=== PATIENT | female | born 1960 | race Two or more races ===

== ENCOUNTER 2018-06-02 09:57 | Outpatient (CLI) | payer BC | END 2018-06-02 23:59 | disposition home or self-care (01) | LOC: RAD 09:57 | PROVIDERS: ATTEND Family Medicine | DX: M17.0 Bilateral primary osteoarthritis of knee (principal); M25.761 Osteophyte, right knee; M25.762 Osteophyte, left knee | CPT/HCPCS: 73562 ==

== ENCOUNTER 2018-08-11 12:59 | Outpatient (CLI) | payer BC | END 2018-08-11 23:59 | disposition home or self-care (01) | LOC: MRI 12:59 | PROVIDERS: ATTEND Family Medicine | DX: S83.241A Other tear of medial meniscus, current injury, right knee, initial encounter (principal); M22.42 Chondromalacia patellae, left knee; M25.462 Effusion, left knee; M25.461 Effusion, right knee; M22.41 Chondromalacia patellae, right knee; M71.21 Synovial cyst of popliteal space [Baker], right knee; X58.XXXA Exposure to other specified factors, initial encounter; Y93.89 Activity, other specified; Y92.89 Other specified places as the place of occurrence of the external cause; Y99.8 Other external cause status | CPT/HCPCS: 73721-TC ==

== ENCOUNTER 2018-11-11 22:57 | Emergency (ER) | payer BC ==
[~2018-11-11] VITALS: Ht 162.6 cm; Wt 86.2 kg
[2018-11-11 23:04] VITALS: BP 145/84
== END 2018-11-11 23:56 | disposition home or self-care (01) ==
LOC: ER 22:57
DX: H10.89 Other conjunctivitis (principal); B99.8 Other infectious disease

== ENCOUNTER 2019-06-03 09:12 | Outpatient (CLI) | payer BC ==
[2019-06-03 10:22] LABS: BASOPHILS % (AUTO) 0.7 % (0.0-2.0); EOSINOPHILS % (AUTO) 2.1 % (0.0-6.0); HEMATOCRIT 42 % (33-45); LYMPHOCYTES # (AUTO) 3.1 /CMM (0.8-4.8); LYMPHOCYTES % (AUTO) 49.1 % (20.0-44.0); MEAN CORPUSCULAR HGB CONC 33 g/dl (31.0-36.0); MEAN CORPUSCULAR VOLUME 88 fL (82-100); MONOCYTES # (AUTO) 0.6 /CMM (0.1-1.30); MONOCYTES % (AUTO) 9.6 % (2.0-12.0); NEUTROPHILS # (AUTO) 2.4 /CMM (1.8-8.9); NEUTROPHILS % (AUTO) 38.5 % (43.0-81.0); PLATELET COUNT (AUTO) 190 /CMM (150-450); RED BLOOD CELL COUNT(AUTO) 4.84 MIL/uL (4.0-5.2); WHITE BLOOD COUNT (AUTO) 6.3 K/uL (4.3-11.0)
[2019-06-03 10:24] LABS: APPEARANCE,URINE SL CLOUDY (CLEAR); BILIRUBIN,URINE NEGATIVE (NEGATIVE); BLOOD, URINE TRACE-INTA Ery/uL (NEGATIVE); COLOR,URINE DARK YELLO (YELLOW); KETONES,URINE NEGATIVE (NEGATIVE); LEUKOCYTE ESTERASE ,URINE NEGATIVE (NEGATIVE); NITRITE, URINE POSITIVE (NEGATIVE); PH,URINE 6.5 (5.0-8.0); PROTEIN,URINE NEGATIVE (NEGATIVE); UGLUCOSE NEGATIVE (NEGATIVE); UROBILINOGEN,URINE 0.2 EU/dL (0.2)
[2019-06-03 10:30] LABS: ALBUMIN 4.4 g/dL (3.4-5.0); BILIRUBIN,TOTAL 0.6 mg/dL (0.2-1.0); CALCIUM, SERUM 9.3 mg/dL (8.5-10.1); POTASSIUM 3.5 mmol/L (3.5-5.1)
[2019-06-03 11:12] LABS: BACTERIA,URINE Few /HPF (None Seen); RBC,URINE 0-2 /HPF (0-2)
== END 2019-06-03 23:59 | disposition home or self-care (01) ==
LOC: LAB 09:12
PROVIDERS: ATTEND Family Medicine
DX: R31.0 Gross hematuria (principal)
CPT/HCPCS: 36415; 80053-TC; 81000-TC; 85025-TC; 87086-TC

== ENCOUNTER 2019-06-04 08:53 | Outpatient (CLI) | payer BC ==
[2019-06-04] MEDS ORDERED: IV NS 0.9% 250 ML IV ONE (09:05)
[2019-06-04] MEDS ORDERED: IOHEXOL-300 100 ML VIAL IV ONE (09:05)
[2019-06-04] MEDS ORDERED: CT SWABBABLE VALVE TRANS SET 1 EA INFUS.SET MC ONE (09:05)
== END 2019-06-04 23:59 | disposition home or self-care (01) ==
LOC: CT 08:53
PROVIDERS: ATTEND Family Medicine
DX: R31.0 Gross hematuria (principal)
CPT/HCPCS: 74178; J7050; Q9967

== ENCOUNTER 2019-07-13 09:44 | Emergency (ER) | payer BC, OTHER ==
[~2019-07-13] VITALS: Ht 162.6 cm; Wt 88.5 kg
[2019-07-13 09:46] VITALS: BP 140/80
--- NOTE | 2019-07-13 10:08 | NUR ---
COVID SWAB SENT TO LAB.
--- NOTE | 2019-07-14 03:18 | NUR ---
LAB CALLED REGARDING COVID NEGATIVE RESULT.
== END 2019-07-13 10:16 | disposition home or self-care (01) ==
LOC: ER 09:44
DX: Z03.818 Encounter for observation for suspected exposure to other biological agents ruled out (principal)
CPT/HCPCS: 99283; U0003

== ENCOUNTER 2019-07-19 13:31 | Emergency (ER) | payer BC, OTHER ==
[~2019-07-19] VITALS: Ht 162.6 cm; Wt 81.6 kg
[2019-07-19 13:41] VITALS: BP 162/87
--- NOTE | 2019-07-19 14:09 | NUR ---
Note undone in EDM - 07/19/19 at 1412 by LUIS FERNANDO BIBRA FROM HOME TO ER BED 6. AAOX4. NOT IN RESP DISTRESS, BREATHING EVEN AND UNLABORED. BROUGHT IN ON JANNETH. C/O PAIN ON THE BACK OF THE HEAD S/P GLF. PER PT, HE FELL FROM STANDING X 3 AND HIT THE BACK OF THE HEAD. NOTED SKING TEAR ON L ELBOW AND R HAND. AT [facility] FOR EVAL. AWAITING ORDERS
--- NOTE | 2019-07-19 14:27 | NUR ---
Patient discharged to home in stable condition. Written and verbal after care instructions given. Patient verbalizes understanding of instruction. Pt ambulatory with a steady gait
== END 2019-07-19 14:29 | disposition home or self-care (01) ==
LOC: ER 13:41
DX: J06.9 Acute upper respiratory infection, unspecified (principal); Z98.890 Other specified postprocedural states

== ENCOUNTER 2019-07-21 09:35 | Emergency (ER) | payer BC, OTHER ==
[~2019-07-21] VITALS: Ht 162.6 cm; Wt 81.6 kg
[2019-07-21 09:43] VITALS: BP 136/84
--- NOTE | 2019-07-21 10:35 | NUR ---
covid swab sent to lab.
--- NOTE | 2019-07-22 06:48 | NUR ---
REC'D COVID RESULTS BY MAYELIN FROM MD S[facility]OR AWARE
== END 2019-07-21 10:36 | disposition home or self-care (01) ==
LOC: ER 09:44
DX: U07.1 COVID-19 (principal); R51 Headache; J06.9 Acute upper respiratory infection, unspecified
CPT/HCPCS: 99283; C9803; U0003

== ENCOUNTER 2019-08-05 11:05 | Emergency (ER) | payer OTHER ==
[~2019-08-05] VITALS: Ht 162.6 cm; Wt 80.7 kg
[2019-08-05 11:17] VITALS: BP 161/85
--- NOTE | 2019-08-05 11:39 | NUR ---
covid 19 specimen collected and sent to lab
== END 2019-08-05 11:40 | disposition home or self-care (01) ==
LOC: ER 11:07
DX: U07.1 COVID-19 (principal); J12.89 Other viral pneumonia
CPT/HCPCS: 99283; C9803; U0003

== ENCOUNTER 2019-09-20 09:10 | Outpatient (CLI) | payer BC ==
[2019-09-20 10:50] LABS: BASOPHILS % (AUTO) 0.9 % (0.0-2.0); HEMATOCRIT 42 % (33-45); HEMOGLOBIN 13.8 g/dL (11.5-14.8); LYMPHOCYTES # (AUTO) 2.3 /CMM (0.8-4.8); LYMPHOCYTES % (AUTO) 53.1 % (20.0-44.0); MEAN CORPUSCULAR HGB CONC 33 g/dl (31.0-36.0); MEAN CORPUSCULAR VOLUME 89 fL (82-100); MONOCYTES # (AUTO) 0.4 /CMM (0.1-1.30); MONOCYTES % (AUTO) 8.3 % (2.0-12.0); NEUTROPHILS # (AUTO) 1.5 /CMM (1.8-8.9); NEUTROPHILS % (AUTO) 35.7 % (43.0-81.0); PLATELET COUNT (AUTO) 171 /CMM (150-450); RED BLOOD CELL COUNT(AUTO) 4.76 MIL/uL (4.0-5.2); WHITE BLOOD COUNT (AUTO) 4.3 K/uL (4.3-11.0)
[2019-09-20 10:53] LABS: BILIRUBIN,TOTAL 0.6 mg/dL (0.2-1.0); CALCIUM, SERUM 9.1 mg/dL (8.5-10.1); CREATININE 0.9 mg/dL (0.6-1.3); TOTAL PROTEIN, SERUM 7.4 g/dL (6.4-8.2)
[2019-09-20 13:48] LABS: APPEARANCE,URINE CLEAR (CLEAR); BILIRUBIN,URINE NEGATIVE (NEGATIVE); BLOOD, URINE TRACE-INTA Ery/uL (NEGATIVE); COLOR,URINE YELLOW (YELLOW); KETONES,URINE NEGATIVE (NEGATIVE); LEUKOCYTE ESTERASE ,URINE TRACE (NEGATIVE); NITRITE, URINE NEGATIVE (NEGATIVE); PH,URINE 6.5 (5.0-8.0); PROTEIN,URINE NEGATIVE (NEGATIVE); UGLUCOSE NEGATIVE (NEGATIVE); UROBILINOGEN,URINE 0.2 EU/dL (0.2)
[2019-09-20 14:41] LABS: BACTERIA,URINE Few /HPF (None Seen); RED BLOOD CELL CASTS,URINE Few /LPF (None Seen); SQUAMOUS EPITHELIAL CELL,UR Few /HPF (None Seen)
== END 2019-09-20 23:59 | disposition home or self-care (01) ==
LOC: US 09:10
PROVIDERS: ATTEND Family Medicine
DX: R16.0 Hepatomegaly, not elsewhere classified (principal)
CPT/HCPCS: 36415; 76700-TC; 80053-TC; 81000-TC; 82150-TC; 83690-TC; 85025-TC

== ENCOUNTER 2019-11-19 07:54 | Outpatient (CLI) | payer BC ==
[2019-11-19 09:13] LABS: BASOPHILS % (AUTO) 0.6 % (0.0-2.0); HEMATOCRIT 39 % (33-45); HEMOGLOBIN 12.8 g/dL (11.5-14.8); LYMPHOCYTES # (AUTO) 1.9 /CMM (0.8-4.8); LYMPHOCYTES % (AUTO) 42.5 % (20.0-44.0); MEAN CORPUSCULAR HGB CONC 33 g/dl (31.0-36.0); MEAN CORPUSCULAR VOLUME 90 fL (82-100); MONOCYTES # (AUTO) 0.4 /CMM (0.1-1.30); MONOCYTES % (AUTO) 8.6 % (2.0-12.0); NEUTROPHILS # (AUTO) 2.1 /CMM (1.8-8.9); NEUTROPHILS % (AUTO) 46.3 % (43.0-81.0); PLATELET COUNT (AUTO) 153 /CMM (150-450); RED BLOOD CELL COUNT(AUTO) 4.35 MIL/uL (4.0-5.2); WHITE BLOOD COUNT (AUTO) 4.4 K/uL (4.3-11.0)
[2019-11-19 09:17] LABS: APPEARANCE,URINE CLEAR (CLEAR); BILIRUBIN,URINE NEGATIVE (NEGATIVE); BLOOD, URINE NEGATIVE Ery/uL (NEGATIVE); COLOR,URINE YELLOW (YELLOW); KETONES,URINE NEGATIVE (NEGATIVE); LEUKOCYTE ESTERASE ,URINE NEGATIVE (NEGATIVE); NITRITE, URINE NEGATIVE (NEGATIVE); PH,URINE 6.5 (5.0-8.0); PROTEIN,URINE NEGATIVE (NEGATIVE); UGLUCOSE NEGATIVE (NEGATIVE); UROBILINOGEN,URINE 0.2 EU/dL (0.2)
[2019-11-19 10:09] LABS: ALBUMIN 3.9 g/dL (3.4-5.0); BILIRUBIN,TOTAL 0.6 mg/dL (0.2-1.0); CALCIUM, SERUM 8.8 mg/dL (8.5-10.1); CREATININE 0.9 mg/dL (0.6-1.3); POTASSIUM 3.5 mmol/L (3.5-5.1); TOTAL PROTEIN, SERUM 7.2 g/dL (6.4-8.2)
[2019-11-19 10:15] LABS: THYROID STIMULATING HORMONE 5.826 uIU/mL (0.358-3.74)
== END 2019-11-19 23:59 | disposition home or self-care (01) ==
LOC: LAB 07:54
PROVIDERS: ATTEND Family Medicine
DX: Z00.01 Encounter for general adult medical examination with abnormal findings (principal)
CPT/HCPCS: 36415; 80053-TC; 80061-TC; 81000-TC; 84439-TC; 84443-TC; 85025-TC

== ENCOUNTER 2020-01-05 07:37 | Outpatient (CLI) | payer BC | END 2020-01-05 23:59 | disposition home or self-care (01) | LOC: RAD 07:37 | PROVIDERS: ATTEND Family Medicine | DX: M17.0 Bilateral primary osteoarthritis of knee (principal) | CPT/HCPCS: 73562 ==

== ENCOUNTER 2020-06-15 08:51 | Outpatient (CLI) | payer BC ==
[2020-06-15 09:54] LABS: BASOPHILS % (AUTO) 0.1 % (0.0-2.0); HEMATOCRIT 39 % (33-45); HEMOGLOBIN 13.1 g/dL (11.5-14.8); LYMPHOCYTES # (AUTO) 1.3 /CMM (0.8-4.8); MEAN CORPUSCULAR HGB CONC 33 g/dl (31.0-36.0); MEAN CORPUSCULAR VOLUME 90 fL (82-100); MONOCYTES # (AUTO) 0.3 /CMM (0.1-1.30); MONOCYTES % (AUTO) 3.8 % (2.0-12.0); NEUTROPHILS # (AUTO) 6.4 /CMM (1.8-8.9); NEUTROPHILS % (AUTO) 80.1 % (43.0-81.0); PLATELET COUNT (AUTO) 185 /CMM (150-450)
[2020-06-15 10:08] LABS: ALBUMIN 4.2 g/dL (3.4-5.0); BILIRUBIN,TOTAL 0.5 mg/dL (0.2-1.0); CALCIUM, SERUM 9.2 mg/dL (8.5-10.1); CREATININE 0.7 mg/dL (0.6-1.3); POTASSIUM 4.2 mmol/L (3.5-5.1); TOTAL PROTEIN, SERUM 7.7 g/dL (6.4-8.2)
[2020-06-15 10:24] LABS: URIC ACID 2.9 mg/dL (2.6-7.2)
== END 2020-06-15 23:59 | disposition home or self-care (01) ==
LOC: LAB 08:51
PROVIDERS: ATTEND Family Medicine
DX: M25.562 Pain in left knee (principal)
CPT/HCPCS: 36415; 80053-TC; 84550-TC; 85025-TC

== ENCOUNTER 2020-06-20 08:03 | Outpatient (CLI) | payer BC | END 2020-06-20 23:59 | disposition home or self-care (01) | LOC: RAD 08:03 | PROVIDERS: ATTEND Family Medicine | DX: M17.12 Unilateral primary osteoarthritis, left knee (principal); M25.462 Effusion, left knee; M25.762 Osteophyte, left knee; M79.89 Other specified soft tissue disorders | CPT/HCPCS: 73562 ==

== ENCOUNTER 2020-06-29 09:55 | Outpatient (CLI) | payer BC | END 2020-06-29 23:59 | disposition home or self-care (01) | LOC: MRI 09:55 | PROVIDERS: ATTEND Family Medicine | DX: S83.242A Other tear of medial meniscus, current injury, left knee, initial encounter (principal); S83.282A Other tear of lateral meniscus, current injury, left knee, initial encounter; M17.12 Unilateral primary osteoarthritis, left knee; M25.462 Effusion, left knee; M71.22 Synovial cyst of popliteal space [Baker], left knee; M25.862 Other specified joint disorders, left knee; X58.XXXA Exposure to other specified factors, initial encounter; Y93.89 Activity, other specified; Y92.89 Other specified places as the place of occurrence of the external cause; Y99.8 Other external cause status | CPT/HCPCS: 73721-TC ==

== ENCOUNTER 2020-08-20 06:25 | Emergency (ER) | payer BC ==
[~2020-08-20] VITALS: Ht 160 cm; Wt 65.8 kg
[2020-08-20 06:25] VITALS: BP 151/97
[2020-08-20 07:01] LABS: BILIRUBIN,URINE NEGATIVE (NEGATIVE); COLOR,URINE YELLOW (YELLOW); LEUKOCYTE ESTERASE ,URINE MODERATE (NEGATIVE); NITRITE, URINE NEGATIVE (NEGATIVE); PROTEIN,URINE NEGATIVE (NEGATIVE); UGLUCOSE NEGATIVE (NEGATIVE); UROBILINOGEN,URINE 0.2 EU/dL (0.2)
[2020-08-20] MEDS ORDERED: CEPH500C2 PO (07:20)
--- NOTE | 2020-08-20 07:57 | NUR ---
Patient discharged to home in stable condition. Written and verbal after care instructions given. Patient verbalizes understanding of instruction.
[2020-08-20 08:16] LABS: BACTERIA,URINE Few /HPF (None Seen); SQUAMOUS EPITHELIAL CELL,UR Few /HPF (None Seen)
== END 2020-08-20 08:00 | disposition home or self-care (01) ==
LOC: ER 06:29
DX: N39.0 Urinary tract infection, site not specified (principal)
CPT/HCPCS: 81001; 87086-TC

== ENCOUNTER 2021-07-10 09:12 | Outpatient (CLI) | payer BC ==
[~2021-07-10 09:12] MED LIST: CEPH500C2 PO
[2021-07-10 09:54] LABS: CREATININE 0.9 mg/dL (0.6-1.3)
[2021-07-10 09:57] LABS: BASOPHILS % (AUTO) 0.5 % (0.0-2.0); EOSINOPHILS % (AUTO) 3.1 % (0.0-6.0); HEMATOCRIT 40 % (33-45); HEMOGLOBIN 13.3 g/dL (11.5-14.8); LYMPHOCYTES # (AUTO) 1.7 K/uL (0.8-4.8); LYMPHOCYTES % (AUTO) 37.6 % (20.0-44.0); MEAN CORPUSCULAR HGB CONC 34 g/dl (31.0-36.0); MEAN CORPUSCULAR VOLUME 88 fL (82-100); MONOCYTES # (AUTO) 0.4 K/uL (0.1-1.30); NEUTROPHILS # (AUTO) 2.2 K/uL (1.8-8.9); NEUTROPHILS % (AUTO) 49.8 % (43.0-81.0); PLATELET COUNT (AUTO) 163 K/uL (150-450); WHITE BLOOD COUNT (AUTO) 4.5 K/uL (4.3-11.0)
[2021-07-10 10:15] LABS: BILIRUBIN,URINE NEGATIVE (NEGATIVE); COLOR,URINE YELLOW (YELLOW); LEUKOCYTE ESTERASE ,URINE NEGATIVE (NEGATIVE); NITRITE, URINE NEGATIVE (NEGATIVE); PH,URINE 6.5 (5.0-8.0); PROTEIN,URINE NEGATIVE (NEGATIVE); UGLUCOSE NEGATIVE (NEGATIVE); UROBILINOGEN,URINE 0.2 EU/dL (0.2)
[2021-07-10 10:48] LABS: BACTERIA,URINE Few /HPF (None Seen); RBC,URINE 0-2 /HPF (0-2); SQUAMOUS EPITHELIAL CELL,UR Few /HPF (None Seen); WBC,URINE 0-2 /HPF (0-3)
== END 2021-07-10 23:59 | disposition home or self-care (01) ==
LOC: LAB 09:12
PROVIDERS: ATTEND Family Medicine
DX: R31.9 Hematuria, unspecified (principal)
CPT/HCPCS: 36415; 81001; 82565-TC; 84520-TC; 85025-TC; 87086-TC

== ENCOUNTER 2021-07-25 09:30 | Outpatient (CLI) | payer BC ==
[2021-07-25] MEDS ORDERED: IOHEXOL-350 100 ML VIAL IV ONE (09:56)
[2021-07-25] MEDS ORDERED: IV NS 0.9% 250 ML IV ONE (09:57)
[2021-07-25] MEDS ORDERED: CT SWABBABLE VALVE TRANS SET 1 EA INFUS.SET MC ONE (09:57)
== END 2021-07-25 23:59 | disposition home or self-care (01) ==
LOC: CT 09:30
PROVIDERS: ATTEND Family Medicine
DX: R31.9 Hematuria, unspecified (principal)
CPT/HCPCS: 74178; J7050; Q9967

== ENCOUNTER 2022-09-04 10:06 | Outpatient (CLI) | payer BC ==
[2022-09-04] MEDS ORDERED: IOHEXOL-350 100 ML VIAL IV ONE (10:47)
[2022-09-04] MEDS ORDERED: IV NS 0.9% 250 ML IV ONE (10:48)
[2022-09-04] MEDS ORDERED: CT SWABBABLE VALVE TRANS SET 1 EA INFUS.SET MC ONE (10:48)
== END 2022-09-04 23:59 | disposition home or self-care (01) ==
LOC: CT 10:06
PROVIDERS: ATTEND Family Medicine
DX: K76.0 Fatty (change of) liver, not elsewhere classified (principal); R16.0 Hepatomegaly, not elsewhere classified; R31.29 Other microscopic hematuria
CPT/HCPCS: 74178; J7050; Q9967